=== PATIENT | female | born 1980 | race American Indian/Alaskan Native ===

== ENCOUNTER 2017-05-10 16:58 | Emergency (ER) | payer SELFPAY ==
[2017-05-10 17:15] VITALS: BP 124/84
[2017-05-10 18:07] LABS: Alanine Aminotransferase 13 units/L (7-56); Albumin 4.2 g/dL (3.9-5); Albumin/Globulin Ratio 1.2 %; Alkaline Phosphatase 58 units/L (35-129); Anion Gap 18 mmol/L; BUN/Creatinine Ratio 13.75; Blood Urea Nitrogen 11 mg/dL (7-17); Calcium 9.5 mg/dL (8.4-10.2); Carbon Dioxide 21 mmol/L (22-30); Glucose 121 mg/dL (65-100); Lipase 68 units/L (13-60); Potassium 3.9 mmol/L (3.6-5.0); Sodium 141 mmol/L (137-145); Total Protein 7.7 g/dL (6.3-8.2)
[2017-05-10 18:14] LABS: Basophils % (Auto) 0.7 % (0.0-1.8); Eosinophils % (Auto) 3.1 % (0.0-4.3); Hematocrit 35.3 % (30.3-42.9); Hemoglobin 11.2 gm/dl (10.1-14.3); Mean Corpuscular HGB Conc 32 % (30-34); Mean Corpuscular Volume 75 fl (79-97); Platelet Count 189 K/mm3 (140-440); Red Blood Count 4.68 M/mm3 (3.65-5.03); Red Cell Distribution Width 19.1 % (13.2-15.2); White Blood Count 8.7 K/mm3 (4.5-11.0)
[2017-05-10 18:20] LABS: Mean Corpuscular Hemoglobin 24 pg (28-32)
[2017-05-10 19:32] LABS: Bacteria,Urine 1+ /HPF (Negative); Bilirubin,Urine NEG (Negative); Blood,Urine NEG (Negative); Ketones,Urine TR mg/dL (Negative); Leukocyte Esterase,Urine MOD (Negative); Mucus,Urine 1+ /HPF; Nitrite,Urine NEG (Negative); Urobilinogen,Urine < 2.0 mg/dL (<2.0)
--- NOTE | 2017-05-14 13:21 | ED Elopement Review ---
ED Pt Elopement review - Results review Lab results: Laboratory Tests 05/10/17 05/10/17 05/10/17 17:18 17:18 17:18 WBC 8.7 RBC 4.68 Hgb 11.2 Hct 35.3 MCV 75 L MCH 24 L MCHC 32 RDW 19.1 H Plt Count 189 Lymph % (Auto) 27.9 [place] % (Auto) 9.1 H Eos % (Auto) 3.1 Baso % (Auto) 0.7 Lymph # 2.4 [place] # 0.8 Eos # 0.3 Baso # 0.1 Seg Neutrophils % 59.2 Seg Neutrophils # 5.1 Sodium 141 Potassium 3.9 Chloride 106.0 Carbon Dioxide 21 L Anion Gap 18 BUN 11 Creatinine 0.8 Estimated GFR > 60 BUN/Creatinine Ratio 13.75 Glucose 121 H Calcium 9.5 Total Bilirubin 0.30 AST 15 ALT 13 Alkaline Phosphatase 58 Total Protein 7.7 Albumin 4.2 Albumin/Globulin Ratio 1.2 Lipase 68 H HCG, Qual Negative Urine Color Urine Turbidity Urine pH Ur Specific [place] Urine Protein Urine Glucose (UA) Urine Ketones Urine Blood Urine Nitrite Urine Bilirubin Urine Urobilinogen Ur Leukocyte Esterase Urine WBC (Auto) Urine RBC (Auto) U Epithel Cells (Auto) Urine Bacteria (Auto) Urine Mucus 05/10/17 18:05 WBC RBC Hgb Hct MCV MCH MCHC RDW Plt Count Lymph % (Auto) [place] % (Auto) Eos % (Auto) Baso % (Auto) Lymph # [place] # Eos # Baso # Seg Neutrophils % Seg Neutrophils # Sodium Potassium Chloride Carbon Dioxide Anion Gap BUN Creatinine Estimated GFR BUN/Creatinine Ratio Glucose Calcium Total Bilirubin AST ALT Alkaline Phosphatase Total Protein Albumin Albumin/Globulin Ratio Lipase HCG, Qual Urine Color Yellow Urine Turbidity Clear Urine pH 5.0 Ur Specific [place] 1.028 Urine Protein 30 mg/dl Urine Glucose (UA) Neg Urine Ketones Tr Urine Blood Neg Urine Nitrite Neg Urine Bilirubin Neg Urine Urobilinogen < 2.0 Ur Leukocyte Esterase Mod Urine WBC (Auto) 5.0 Urine RBC (Auto) 14.0 U Epithel Cells (Auto) 2.0 Urine Bacteria (Auto) 1+ Urine Mucus 1+ - Call Back decision Pt Call Back Decision: No action required
== END 2017-05-11 | disposition left against medical advice (07) ==
LOC: ED 16:58
DX: M54.5 Low back pain (principal); Z53.21 Procedure and treatment not carried out due to patient leaving prior to being seen by health care provider
CPT/HCPCS: 36415; 80053; 81001; 83690; 84703; 85025

== ENCOUNTER 2020-06-09 17:55 | Emergency (ER) | payer SELFPAY ==
[2020-06-09 18:37] VITALS: BP 119/68
[2020-06-09] MEDS ORDERED: dexAMETHasone 20 MG/5 ML VIAL IM ONE (23:19)
[2020-06-09] MEDS ORDERED: KETOROLAC 30 MG/1 ML INJ IM ONE (23:19)
--- NOTE | 2020-06-10 00:09 | Emergency Department Report ---
Upper Extremity - [facility] Chief Complaint: Extremity Injury, Upper Stated Complaint: LEGS NUMBS Time Seen by Provider: 06/09/20 22:54 Upper Extremity: Left Arm, Right Arm Occurred When: 2 Days Mechanism: Unsure Symptoms: Yes Numbness, No Pain with Movement, No Deformity, No Limited Range of Movement, No Swelling, No Bruising/Ecchymosis, No Laceration or Abrasion ED Review of Systems ROS: Stated complaint: LEGS NUMBS Other details as noted in HPI Constitutional: denies: chills, fever Eyes: denies: eye pain, eye discharge, vision change ENT: denies: ear pain, throat pain Respiratory: denies: cough, shortness of breath, wheezing Cardiovascular: denies: chest pain, palpitations Endocrine: no symptoms reported Gastrointestinal: as per HPI. denies: abdominal pain, nausea Genitourinary: denies: urgency, dysuria, discharge Musculoskeletal: denies: back pain, joint swelling, arthralgia Skin: denies: rash, lesions, change in color, pruritus Neurological: denies: headache, weakness, numbness, paresthesias, confusion, vertigo Psychiatric: denies: anxiety, depression Hematological/Lymphatic: denies: easy bleeding, easy bruising ED Past Medical Hx - Past Medical History Previous Medical History?: Yes Hx Hypertension: Yes (NO MEDS) Hx Diabetes: Yes (GESTATIONAL) Hx Asthma: Yes - Surgical History Past Surgical History?: No - Social History Smoking Status: Never Smoker Substance Use Type: Alcohol - Medications Home Medications: Home Medications Medication Instructions Recorded Confirmed Last Taken Type Cyclobenzaprine [Flexeril 10mg] 10 mg PO TID PRN #20 tablet 05/26/14 Unknown Rx Ibuprofen [Motrin] 800 mg PO Q8H PRN #20 tablet 05/26/14 Unknown Rx Ciprofloxacin HCl [Ciprofloxacin 500 mg PO Q12HR #14 tab 05/11/15 Unknown Rx TAB] Ibuprofen [Motrin 800 MG tab] 800 mg PO Q8HR PRN #20 tablet 05/11/15 Unknown Rx Cyclobenzaprine HCl [Flexeril 5 MG 5 mg PO TID #30 tab 05/17/15 Unknown Rx TAB] Naproxen [Naprosyn TAB] 500 mg PO BID #30 tablet 05/17/15 Unknown Rx traMADoL [Ultram 50 MG tab] 50 mg PO Q6HR PRN #20 tablet 05/17/15 Unknown Rx ALBUTEROL NEB's [Proventil 0.083% 2.5 mg IH QID PRN #1 box 01/16/16 Unknown Rx NEBS] Albuterol Mdi (or & Nicu Only) 2 puff IH QID PRN #1 inhalation 01/16/16 Unknown Rx [ProAir HFA Inhaler] predniSONE [Deltasone] 20 mg PO BID #10 tab 01/16/16 Unknown Rx Naproxen [Naprosyn] 500 mg PO BID PRN 14 Days #30 06/10/20 Unknown Rx tablet Upper Extremity Exam - Exam General: Vital signs noted. No distress. Alert and acting appropriately. Head and Torso: No HEENT Abnormality, No Neck Tenderness, No Chest/Lungs Abnor mality, No Abdominal Tenderness, No Back Tenderness Shoulder Exam: Yes Normal Range of Motion in Shoulder, No Shoulder Tenderness, No Clavicle Tenderness, No Shoulder Deformity, No AC Joint Tenderness Arm Exam: No Arm/Humerus Tenderness, No Arm Deformity Elbow: No Elbow Tenderness, No Normal Range of Motion in Elbow, No Elbow Deformity Forearm: No Forearm Tenderness (Left carpal regiont tenderness tiven is work. ) Wrist: Yes Normal ROM in Wrist, No Wrist Tenderness, No Wrist Deformity, No Snuffbox Tenderness, No Pain with Axial Thumb Compression Hand: Yes Normal ROM in Digit(s), No Hand Tenderness, No Hand Deformity, No Digit Tenderness, No Digit(s) Deformity, No Tendon Dysfunction CMS Exam: No Broken Skin, No Normal Distal Pulses, No Normal Capillary Refill, No Normal Distal Sensation ED Course Vital Signs 06/09/20 18:31 Temperature 98.0 F Pulse Rate 116 H Respiratory 18 Rate Blood Pressure 119/68 [Right] O2 Sat by Pulse 99 Oximetry ED Medical Decision Making - EKG Data EKG shows normal: sinus rhythm - Medical Decision Making Patient treated with NSAIDs and steroids.b advises pain symptoms are improved. Plan DC to home with follow-up with primary care for refill of gabapentin. Take medications as prescribed. Return to emergency should symptoms worsen. Critical care attestation.: If time is entered above; I have spent that time in minutes in the direct care of this critically ill patient, excluding procedure time. ED Disposition Clinical Impression: Shoulder pain Qualifiers: Chronicity: acute Laterality: left Qualified Code(s): M25.512 - Pain in left shoulder Disposition: DC-01 TO HOME OR SELFCARE Is pt being admited?: Yes Does the pt Need Aspirin: Yes Condition: Stable Prescriptions: Naproxen [Naprosyn] 500 mg PO BID PRN 14 Days #30 tablet PRN Reason: pain Referrals: PRIMARY CARE,MD [Primary Care Provider] - 3-5 Days Forms: Work/School Release Form(ED) Time of Disposition: 00:25 Print Language: NAMIBIAN
== END 2020-06-10 00:35 | disposition home or self-care (01) ==
LOC: ED 17:55
DX: M25.512 Pain in left shoulder (principal); R20.0 Anesthesia of skin
CPT/HCPCS: 96372; 99282; J1100; J1885